=== PATIENT | male | born 1950 | race Two or more races ===

== ENCOUNTER 2022-12-18 06:43 | Day surgery (SDC) | payer OTHER ==
[~2022-12-18] VITALS: Ht 172.7 cm; Wt 92.5 kg
[~2022-12-18 06:43] MED LIST: ACET-1080 PO; ASPI-543 PO; CHOL50007 PO; CYAN500T39 PO; DULA1INJ SC; FENO160T PO; FOLI-119 PO; FURO40TA4 PO; GABA-339 PO; HYDR-4902 PO; INSLANTI SC; INSU100I45 IJ; METO-159 PO; RANO500G PO; SIMV40TA18 PO
[2022-12-18] MEDS ORDERED: IODIXANOL 320MG/ML 100ML BTL IV ONE (07:47)
[2022-12-18] MEDS ORDERED: IOHEXOL 350 MG/ML 100ML IJ ONE (07:47)
[2022-12-18] MEDS ORDERED: LIDOCAINE 2%HCL (LOCAL ANESTH.) INJ 20ML MDV ONE ×2 (07:47→08:21)
[2022-12-18] MEDS ORDERED: ANGIOMAX 250 MG VIAL IV ONE (08:20)
[2022-12-18] MEDS ORDERED: HEPARIN SODIUM (PORCINE) 5000 UNITS/ML 1ML VIAL ONE (08:20)
[2022-12-18] MEDS ORDERED: VERAPAMIL 2.5MG/ML INJ 2ML VIAL IV ONE (08:20)
[2022-12-18] MEDS ORDERED: fentaNYL CITRATE 100 MCG/2 ML VL ONE (08:20)
[2022-12-18] MEDS ORDERED: MIDAZOLAM HCL 2MG/2ML 2ml VIAL (1mg/ml) ONE (08:20)
[2022-12-18] MEDS ORDERED: SODIUM CHL 0.9% 0 ML ONE (08:21)
== END 2022-12-18 11:15 | disposition home or self-care (01) ==
LOC: CATH 06:43
PROVIDERS: ATTEND Internal Medicine
DX: R94.39 Abnormal result of other cardiovascular function study (principal); I25.118 Atherosclerotic heart disease of native coronary artery with other forms of angina pectoris; Z95.1 Presence of aortocoronary bypass graft; I10 Essential (primary) hypertension; E78.5 Hyperlipidemia, unspecified; Z79.899 Other long term (current) drug therapy; Z98.890 Other specified postprocedural states
CPT/HCPCS: 93005; 93459; C1769; C1894; J1644; J2250; J3010; Q9967; 99152

== ENCOUNTER 2023-08-13 12:02 | Inpatient (IN) | payer OTHER ==
[~2023-08-13] VITALS: Ht 165.1 cm; Wt 94.5 kg
[2023-08-13 14:30] LABS: Basophils # (auto) 0.1 10 ^3/uL (0-0.2); Basophils % (auto) 0.7 % (0.0-2.0); Eosinophils # (auto) 0.3 10 ^3/uL (0-0.8); Eosinophils % (auto) 2.8 % (0.0-7.0); Hemoglobin 9.6 g/dL (13.5-17.5)
[2023-08-13 14:32] LABS: Hematocrit 31.5 % (41.0-53.0); Lymphocytes # (auto) 2.9 10 ^3/uL (0.4-5.4); Lymphocytes % (auto) 27.3 % (10.0-50.0); Mean Corpuscular Hemoglobin 19.8 pg (28.0-32.0); Mean Corpuscular Hgb Conc. 30.5 g/dL (32.0-36.0); Mean Corpuscular Volume 64.9 fL (80.0-100.0); Monocytes # (auto) 1.3 10 ^3/uL (0-1.3); Neutrophils % (auto) 57.2 % (37.0-80.0); Nucleated Red Blood Cells % 0.1 %; Red Blood Cells 4.85 10^6/uL (4.5-5.90); Red Cell Distribution Width 19.4 % (11.8-14.3); White Blood Cell 10.5 10^3/uL (4.4-10.8)
[2023-08-13 14:43] LABS: Alanine Aminotransferase 24 U/L (7-40); Alkaline Phosphatase 90 U/L (46-116); Anion Gap 9 (5-15); BUN/Creatinine Ratio 14.5 (10.0-20.0); Blood Urea Nitrogen 27 mg/dL (9-23); Calcium 9.9 mg/dL (8.5-10.1); Carbon Dioxide 24 mmol/L (20-30); Chloride 113 mmol/L (98-107); Potassium 3.3 mmol/L (3.5-5.1); Sodium 146 mmol/L (136-145)
[2023-08-13 14:44] LABS: Aspartate Aminotransferase 41 U/L (13-40); Total Protein 6.9 g/dL (5.7-8.2)
[2023-08-13 14:52] LABS: Glucose 32 mg/dL (74-106)
[2023-08-13 14:53] LABS: INR 1.24 (0.9-1.15); Partial Thromboplastin Time 27.1 SEC (24.5-34.5); Prothrombin Time 12.9 sec (9.3-11.8)
[2023-08-13] MEDS: DEXTROSE (50%) 50ML SYRG IV ONE (14:58)
[2023-08-13] MEDS: DEXTROSE 50% SYRINGE 50 ML IV ONE (15:01)
[2023-08-13] MEDS: D5W/SOD CHLO 0.9% 1,000 ML IV ONE (15:28)
[2023-08-13 15:56] LABS: Anisocytosis Slight; Platelet Estimate Adequate
[2023-08-13 15:57] LABS: Hypochromia Marked; Ovalocytes MODERATE; Target Cell MODERATE; Tear Drop Cells FEW
[2023-08-13 17:30] VITALS: PULSE 56; RESP 14; O2SAT 96
[2023-08-13] MEDS: ONDANSETRON HCL 4 MG/2 ML VIAL IV ONE (18:12)
[2023-08-13] MEDS: HYDROmorphone HCL 2 MG/ML VL/or syr IV ONE (18:12)
[2023-08-13 19:30] VITALS: PULSE 72; RESP 16; O2SAT 100
[2023-08-13 19:55] LABS: Urine Bacteria None Seen /hpf (None Seen); Urine WBC None Seen /hpf (0 - 3)
[2023-08-13 20:14] LABS: Urine Blood Negative /uL (Negative); Urine Clarity Clear (Clear); Urine Color Light-Yellow (Yellow); Urine Protein, UAD TRACE (Negative); Urine Specific Gravity 1.013 (1.001-1.035); Urine Urobilinogen Normal (Negative); Urine pH 6.5 (5.0-9.0)
[2023-08-13] MEDS: D5W/SOD CHL 0.45% 1,000 ML IV SCH (23:17)
[2023-08-14] VITALS (8 sets, daily range): BP systolic 103–148; BP diastolic 54–78; PULSE 77–95; RESP 16–20; TEMP 97.8–98.2; O2SAT 91–100
[2023-08-14] MEDS ORDERED: hydrALAZINE HCL 20 MG/ML VL IV PRN (01:30)
[2023-08-14] MEDS: HYDROcodone-ACET 5/325MG TAB PO PRN ×2 (06:08→23:13)
[2023-08-14 06:55] LABS: Basophils # (auto) 0.1 10 ^3/uL (0-0.2); Lymphocytes # (auto) 1.3 10 ^3/uL (0.4-5.4); Monocytes # (auto) 0.9 10 ^3/uL (0-1.3); White Blood Cell 7.4 10^3/uL (4.4-10.8)
[2023-08-14 06:58] LABS: Eosinophils # (auto) 0.1 10 ^3/uL (0-0.8); Hematocrit 30.9 % (41.0-53.0); Hemoglobin 9.7 g/dL (13.5-17.5); Lymphocytes % (auto) 17.1 % (10.0-50.0); Mean Corpuscular Hemoglobin 20.6 pg (28.0-32.0); Mean Corpuscular Hgb Conc. 31.3 g/dL (32.0-36.0); Mean Corpuscular Volume 65.7 fL (80.0-100.0); Monocytes % (auto) 12.3 % (0.0-12.0); Neutrophils % (auto) 67.6 % (37.0-80.0); Nucleated Red Blood Cells % 0.2 %; Red Cell Distribution Width 20.3 % (11.8-14.3)
[2023-08-14 07:16] LABS: Chloride 112 mmol/L (98-107); Potassium 3.7 mmol/L (3.5-5.1); Sodium 144 mmol/L (136-145)
[2023-08-14 07:17] LABS: Anion Gap 9 (5-15); Carbon Dioxide 23 mmol/L (20-30)
[2023-08-14 07:18] LABS: Calcium 9.2 mg/dL (8.7-10.4)
[2023-08-14 07:22] LABS: Blood Urea Nitrogen 18 mg/dL (9-23)
[2023-08-14 07:25] LABS: Glucose 133 mg/dL (74-106)
[2023-08-14] MEDS: PANTOPRAZOLE 40 MG/10 ML VIAL INJ IV SCH (11:04)
[2023-08-14 18:45] LABS: Folate (Folic Acid) 38.88 ng/mL (>5.38)
[2023-08-14] MEDS: MORPHINE SULFATE INJ 2 MG/ml SYRG IV PRN (20:48)
[2023-08-14] MEDS: MELATONIN 5 MG TAB PO PRN (21:59)
[2023-08-15] VITALS (7 sets, daily range): BP systolic 106–146; BP diastolic 47–64; PULSE 89–116; RESP 14–22; TEMP 98–98.9; O2SAT 91–100
[2023-08-15] MEDS: ENOXAPARIN SOD 40 MG/0.4 ML SYRINGE SC SCH (10:23)
[2023-08-15 11:21] LABS: Hemoglobin 9.6 g/dL (13.5-17.5)
[2023-08-15 11:22] LABS: Hematocrit 31.7 % (41.0-53.0); Mean Corpuscular Hemoglobin 19.8 pg (28.0-32.0); Mean Corpuscular Hgb Conc. 30.1 g/dL (32.0-36.0); Mean Corpuscular Volume 65.9 fL (80.0-100.0); Red Blood Cells 4.82 10^6/uL (4.5-5.90); Red Cell Distribution Width 19.4 % (11.8-14.3); White Blood Cell 24.2 10^3/uL (4.4-10.8)
[2023-08-15 11:27] LABS: Chloride 107 mmol/L (98-107); Potassium 3.8 mmol/L (3.5-5.1); Sodium 139 mmol/L (136-145)
[2023-08-15 11:28] LABS: Anion Gap 12 (5-15); Carbon Dioxide 20 mmol/L (20-30)
[2023-08-15 11:29] LABS: Calcium 9.8 mg/dL (8.5-10.1)
[2023-08-15 11:34] LABS: Basophils % (manual) 0 (0.0-2.0); Blast Cells 0; Blood Urea Nitrogen 18 mg/dL (9-23); Eosinophils % (manual) 0 (0-7); Glucose 230 mg/dL (74-106); Metamyelocytes % 0; Myelocytes % 0; Promyelocytes % 0; Reactive Lymphocytes 0
[2023-08-15 11:36] LABS: % Iron Saturation 3.7 % (20-55)
[2023-08-15 12:07] LABS: Band Neutrophils % (manual) 17; Lymphocytes % (manual) 5 (10.0-50.0); Monocytes % (manual) 6 (0-12)
[2023-08-15 12:08] LABS: Hypochromia Marked; Ovalocytes MANY; Platelet Estimate Adequate; Target Cell FEW; Tear Drop Cells MODERATE
[2023-08-15] MEDS: IRON SUCROSE COMPLEX 100 ML IV SCH (16:19)
[2023-08-15] MEDS: diazePAM 5 MG TAB PO ONE (18:50)
[2023-08-16] VITALS (8 sets, daily range): BP systolic 130–145; BP diastolic 59–98; PULSE 70–140; RESP 18–24; TEMP 97.9–101.2; O2SAT 91–100
[2023-08-16 07:17] LABS: Chloride 106 mmol/L (98-107); Potassium 3.6 mmol/L (3.5-5.1); Sodium 138 mmol/L (136-145)
[2023-08-16 07:18] LABS: Anion Gap 12 (5-15); Carbon Dioxide 20 mmol/L (20-30)
[2023-08-16 07:20] LABS: Basophils # (auto) 0 10 ^3/uL (0-0.2); Basophils % (auto) 0.1 % (0.0-2.0); Eosinophils # (auto) 0 10 ^3/uL (0-0.8); Hematocrit 34.2 % (41.0-53.0); Hemoglobin 10.2 g/dL (13.5-17.5); Mean Corpuscular Hemoglobin 20.2 pg (28.0-32.0); Mean Corpuscular Hgb Conc. 29.8 g/dL (32.0-36.0); Monocytes # (auto) 1.3 10 ^3/uL (0-1.3)
[2023-08-16 07:22] LABS: Lymphocytes # (auto) 0.6 10 ^3/uL (0.4-5.4); Mean Corpuscular Volume 67.7 fL (80.0-100.0); Monocytes % (auto) 6.5 % (0.0-12.0); Neutrophils % (auto) 90.4 % (37.0-80.0); Nucleated Red Blood Cells % 0.2 %; Red Blood Cells 5.05 10^6/uL (4.5-5.90); Red Cell Distribution Width 19.9 % (11.8-14.3); White Blood Cell 19.9 10^3/uL (4.4-10.8)
[2023-08-16 07:23] LABS: BUN/Creatinine Ratio 14.1 (10.0-20.0); Blood Urea Nitrogen 23 mg/dL (9-23); Glucose 254 mg/dL (74-106)
[2023-08-16] MEDS: MORPHINE SULFATE 4 MG/ML SYR/VIAL IV PRN ×2 (10:38→19:44)
[2023-08-16] MEDS: ACETAMINOPHEN 325 MG TAB PO PRN (12:01)
[2023-08-16] MEDS: METHOCARBAMOL 500 MG TAB PO SCH (18:11)
[2023-08-16] MEDS: ONDANSETRON HCL 4 MG/2 ML VIAL IV PRN (21:54)
[2023-08-17] VITALS (8 sets, daily range): BP systolic 104–150; BP diastolic 48–75; PULSE 101–144; RESP 18–23; TEMP 97–99.6; O2SAT 90–98
[2023-08-17] MEDS: METOPROLOL TARTRATE 25 MG TAB PO SCH (10:06)
[2023-08-17] MEDS ORDERED: VANCOMYCIN PER PHARMACY 0 MG IV SCH (11:00)
[2023-08-17 13:20] LABS: Lactic Acid w/Reflex 3.1 mmol/L (0.4-2.0)
[2023-08-17] MEDS ORDERED: PIPERACILLIN-TAZOB 3.375GM 100 ML IV SCH (14:00)
[2023-08-17] MEDS: PIPERACILLIN-TAZOB 3.375GM 100 ML IV ONE (14:02)
[2023-08-17 15:04] LABS: Base Excess -6.1 mmol/L (-2.0-2.0)
[2023-08-17] MEDS: VANCOMYCIN 1GM/200ML 200 ML IV ONE (17:08)
[2023-08-17] MEDS: PIPERACILLIN-TAZOB 3.375GM 100 ML IV SCH (22:00)
[2023-08-18] VITALS (64 sets, daily range): BP systolic 62–128; BP diastolic 28–69; PULSE 73–139; RESP 14–42; TEMP 98–99.7; O2SAT 92–100
[2023-08-18 07:06] LABS: RPR Non Reactive (Non Reactive)
[2023-08-18] MEDS ORDERED: DEXTROSE (50%) 50ML SYRG IV PRN (08:30)
[2023-08-18] MEDS: ACCU-CHEK COMFORT CURVE STRIP VI SCH (08:31)
[2023-08-18] MEDS: FUROSEMIDE 40 MG/4 ML VIAL IV ONE (08:55)
[2023-08-18] MEDS: InsuLIN REG 1unit/0.01ml Soln (100units/ml) SC SCH (09:00)
[2023-08-18 09:48] LABS: Urine Bacteria None Seen /hpf (None Seen)
[2023-08-18 10:06] LABS: Urine Blood 1+ /uL (Negative); Urine Clarity Turbid (Clear); Urine Color Light-Orange (Yellow); Urine Protein, UAD 1+ (Negative); Urine Specific Gravity 1.019 (1.001-1.035); Urine Urobilinogen Normal (Negative); Urine WBC 57 /hpf (0 - 3); Urine WBC Clumps PRESENT /hpf (None Seen); Urine pH 7.5 (5.0-9.0)
[2023-08-18] MEDS: AMIODARONE BOLUS KIT 100 ML IV ONE (10:26)
[2023-08-18 10:31] LABS: Base Excess -9.6 mmol/L (-2.0-2.0)
[2023-08-18 10:32] LABS: Alanine Aminotransferase 25 U/L (7-40); Albumin 3.5 g/dL (3.2-4.8); Alkaline Phosphatase 71 U/L (46-116); Anion Gap 13 (5-15); Aspartate Aminotransferase 72 U/L (13-40); Bilirubin, Total 1.4 mg/dL (0.2-1.0); Calcium 9.7 mg/dL (8.5-10.1); Carbon Dioxide 18 mmol/L (20-30); Chloride 106 mmol/L (98-107); Potassium 4.3 mmol/L (3.5-5.1); Sodium 137 mmol/L (136-145); Total Protein 6.6 g/dL (5.7-8.2)
[2023-08-18 10:43] LABS: Hematocrit 29.8 % (41.0-53.0); Hemoglobin 9.3 g/dL (13.5-17.5); Mean Corpuscular Hemoglobin 20.3 pg (28.0-32.0); Mean Corpuscular Hgb Conc. 31.1 g/dL (32.0-36.0); Mean Corpuscular Volume 65.2 fL (80.0-100.0); Red Blood Cells 4.56 10^6/uL (4.5-5.90); Red Cell Distribution Width 19.6 % (11.8-14.3)
[2023-08-18 11:00] LABS: Blood Urea Nitrogen 65 mg/dL (9-23); Glucose 525 mg/dL (74-106)
[2023-08-18 11:07] LABS: Basophils % (manual) 0 (0.0-2.0); Blast Cells 0; Myelocytes % 0; Promyelocytes % 0; Reactive Lymphocytes 0
[2023-08-18] MEDS: NOREPINEPHRINE BITARTRATE 32 MG in SODIUM CHL 0.9% 218 ML IV SCH (11:17)
[2023-08-18] MEDS: MIDAZOLAM DRIP 50 mg/50mL 50 ML IV ONE (11:23)
[2023-08-18 12:15] LABS: Band Neutrophils % (manual) 40; Eosinophils % (manual) 1 (0-7); Lymphocytes % (manual) 11 (10.0-50.0); Metamyelocytes % 2; Monocytes % (manual) 8 (0-12)
[2023-08-18 12:16] LABS: Platelet Estimate Adequate
[2023-08-18 12:17] LABS: Giant Platelets Few; Hypochromia Marked; Ovalocytes MANY
[2023-08-18] MEDS: ETOMIDATE (2MG/ML) 20ML VIAL IV ONE ×2 (12:40→15:11)
[2023-08-18] MEDS: ROCURONIUM 10MG/ML 10ML VIAL IV ONE ×2 (12:40→15:11)
[2023-08-18] MEDS: SODIUM BICARB 50mEq/50ml Vial 50 ML in SOD CHL 0.45% 1,000 ML IV SCH (14:08)
[2023-08-18 14:13] LABS: Protein, Urine 122.5 mg/dL (0.0-11.9)
[2023-08-18] MEDS: ENOXAPARIN SOD 30 MG/0.3 ML SYRINGE SC SCH (14:13)
[2023-08-18] MEDS: fentaNYL Drip 2500mCg/250mlNS 250 ML IV ONE (14:14)
[2023-08-18] MEDS: SODIUM CHLORIDE 0.9% 1,000 ML IV ONE (14:15)
[2023-08-18] MEDS: MIDAZOLAM DRIP 50 mg/50mL 50 ML IV SCH (14:15)
[2023-08-18] MEDS: fentaNYL Drip 2500mCg/250mlNS 250 ML IV SCH (14:15)
[2023-08-18 14:16] LABS: Creatinine, Urine 70.92 mg/dL (30.0-125.0); Urine Protein/Creatinine Ratio 1.73
[2023-08-18 14:25] LABS: Base Excess -9.5 mmol/L (-2.0-2.0)
[2023-08-18] MEDS: VANCOMYCIN 500 MG in D5W 5% 100 ML IV ONE ×2 (14:54→14:58)
[2023-08-18] MEDS: AMIODARONE 450mg/250ml AE 250 ML IV SCH ×2 (14:57→19:11)
[2023-08-18] MEDS: AMIODARONE 450mg/250ml AE 250 ML IV ONE (14:58)
[2023-08-18] MEDS: FUROSEMIDE 40 MG/4 ML VIAL ONE (15:11)
[2023-08-18] MEDS ORDERED: PIPERACILLIN-TAZOB 3.375GM 100 ML IV SCH (17:00)
[2023-08-18] MEDS: CEFEPIME 1GM/ 50ML 50 ML IV SCH (22:02)
[2023-08-19] VITALS (109 sets, daily range): BP systolic 85–133; BP diastolic 23–67; PULSE 75–144; RESP 14–30; TEMP 98.6–100.4; O2SAT 100
[2023-08-19 01:12] LABS: Base Excess -8.3 mmol/L (-2.0-2.0)
[2023-08-19 03:54] LABS: Eosinophils # (auto) 0.1 10 ^3/uL (0-0.8); Hemoglobin 9.3 g/dL (13.5-17.5); Monocytes # (auto) 1.1 10 ^3/uL (0-1.3); Monocytes % (auto) 7.2 % (0.0-12.0)
[2023-08-19 03:56] LABS: Basophils # (auto) 0 10 ^3/uL (0-0.2); Basophils % (auto) 0.2 % (0.0-2.0); Eosinophils % (auto) 0.5 % (0.0-7.0); Hematocrit 29.9 % (41.0-53.0); Lymphocytes # (auto) 2.2 10 ^3/uL (0.4-5.4); Lymphocytes % (auto) 14.3 % (10.0-50.0); Mean Corpuscular Hemoglobin 20.1 pg (28.0-32.0); Mean Corpuscular Hgb Conc. 31.3 g/dL (32.0-36.0); Mean Corpuscular Volume 64.4 fL (80.0-100.0); Neutrophils # (auto) 11.8 10 ^3/uL (1.6-8.6); Neutrophils % (auto) 77.8 % (37.0-80.0); Nucleated Red Blood Cells % 1.2 %; Red Blood Cells 4.64 10^6/uL (4.5-5.90); Red Cell Distribution Width 19.7 % (11.8-14.3); White Blood Cell 15.1 10^3/uL (4.4-10.8)
[2023-08-19 04:13] LABS: Alanine Aminotransferase 28 U/L (7-40); Alkaline Phosphatase 80 U/L (46-116); Anion Gap 14 (5-15); Aspartate Aminotransferase 87 U/L (13-40); BUN/Creatinine Ratio 21.5 (10.0-20.0); Bilirubin, Total 1.5 mg/dL (0.2-1.0); Calcium 9.5 mg/dL (8.7-10.4); Carbon Dioxide 18 mmol/L (20-30); Chloride 105 mmol/L (98-107); Potassium 3.6 mmol/L (3.5-5.1); Sodium 137 mmol/L (136-145); Total Protein 6.2 g/dL (5.7-8.2)
[2023-08-19 04:27] LABS: Glucose 376 mg/dL (74-106)
[2023-08-19 04:28] LABS: Blood Urea Nitrogen 83 mg/dL (9-23)
[2023-08-19] MEDS ORDERED: AMIODARONE 450mg/250ml AE 250 ML IV SCH (07:00)
[2023-08-19 07:03] LABS: Base Excess -7.2 mmol/L (-2.0-2.0)
[2023-08-19] MEDS: SODIUM BICARB 50mEq/50ml Vial 50 ML in SOD CHL 0.45% 1,000 ML IV SCH (10:27)
[2023-08-19] MEDS: CEFEPIME 1GM/ 50ML 50 ML IV SCH (10:29)
[2023-08-19] MEDS: ALBUMIN 25% 100 ML IV ONE (11:55)
[2023-08-19] MEDS: BUMETANIDE 2.5mg/10ml (0.25 mg/ml) INJ IV ONE (12:45)
[2023-08-19] MEDS: BUMETANIDE INJECTION 12.5 MG in GIVE UN-DILUTED 0 ML IV SCH (12:56)
[2023-08-19] MEDS: PROPOFOL 100 ML IV SCH (15:09)
[2023-08-19] MEDS: SODIUM FERR GLUC 62.5MG/5ML 125 MG in SODIUM CHL 0.9% 100 ML IV SCH (17:04)
[2023-08-20] VITALS (104 sets, daily range): BP systolic 69–137; BP diastolic 24–77; PULSE 77–136; RESP 13–31; TEMP 97–99.5; O2SAT 98–100
[2023-08-20 04:25] LABS: Hemoglobin 8.7 g/dL (13.5-17.5); Mean Corpuscular Hemoglobin 20.3 pg (28.0-32.0); Mean Corpuscular Hgb Conc. 32.1 g/dL (32.0-36.0); Mean Corpuscular Volume 63.3 fL (80.0-100.0); Red Blood Cells 4.26 10^6/uL (4.5-5.90); Red Cell Distribution Width 19.4 % (11.8-14.3); White Blood Cell 20.8 10^3/uL (4.4-10.8)
[2023-08-20 04:38] LABS: Alanine Aminotransferase 30 U/L (7-40); Alkaline Phosphatase 113 U/L (46-116); Anion Gap 13 (5-15); Aspartate Aminotransferase 85 U/L (13-40); BUN/Creatinine Ratio 24.6 (10.0-20.0); Bilirubin, Total 2.3 mg/dL (0.2-1.0); Calcium 9.3 mg/dL (8.7-10.4); Carbon Dioxide 19 mmol/L (20-30); Chloride 104 mmol/L (98-107); Glucose 321 mg/dL (74-106); Potassium 3.4 mmol/L (3.5-5.1); Sodium 136 mmol/L (136-145)
[2023-08-20 04:44] LABS: Basophils % (manual) 0 (0.0-2.0); Blast Cells 0; Eosinophils % (manual) 0 (0-7); Metamyelocytes % 0; Promyelocytes % 0; Reactive Lymphocytes 0
[2023-08-20 04:45] LABS: Blood Urea Nitrogen 90 mg/dL (9-23)
[2023-08-20 05:37] LABS: Band Neutrophils % (manual) 11; Hypochromia Marked; Lymphocytes % (manual) 13 (10.0-50.0); Monocytes % (manual) 6 (0-12); Myelocytes % 1
[2023-08-20 05:38] LABS: Giant Platelets Few; Large Platelets FEW; Ovalocytes MODERATE; Platelet Estimate Adequate; Target Cell FEW
[2023-08-20] MEDS: NOREPINEPHRINE BITARTRATE 32 MG in SODIUM CHL 0.9% 218 ML IV SCH (07:00)
[2023-08-20 07:31] LABS: Base Excess -6.8 mmol/L (-2.0-2.0)
[2023-08-20] MEDS ORDERED: HEPARIN DRIP/D5W 100UNITS/ML 250 ML IV SCH (08:00)
[2023-08-20] MEDS: HEPARIN SODIUM (PORCINE) 5000 UNITS/ML 1ML VIAL IV ONE (08:24)
[2023-08-20 09:06] LABS: Hemoglobin 8.6 g/dL (13.5-17.5); Mean Corpuscular Hemoglobin 20.1 pg (28.0-32.0); Mean Corpuscular Hgb Conc. 31.7 g/dL (32.0-36.0); Mean Corpuscular Volume 63.4 fL (80.0-100.0); Red Blood Cells 4.26 10^6/uL (4.5-5.90); Red Cell Distribution Width 19.3 % (11.8-14.3); White Blood Cell 22.2 10^3/uL (4.4-10.8)
[2023-08-20 09:07] LABS: INR 1.76 (0.9-1.15); Partial Thromboplastin Time 37.1 SEC (24.5-34.5); Prothrombin Time 17.9 sec (9.3-11.8)
[2023-08-20 09:08] LABS: Basophils % (manual) 0 (0.0-2.0); Blast Cells 0; Eosinophils % (manual) 0 (0-7); Metamyelocytes % 0; Promyelocytes % 0; Reactive Lymphocytes 0
[2023-08-20 09:35] LABS: Band Neutrophils % (manual) 11; Lymphocytes % (manual) 16 (10.0-50.0); Monocytes % (manual) 3 (0-12); Myelocytes % 2
[2023-08-20 09:36] LABS: Hypochromia Moderate; Platelet Estimate Adequate; Target Cell FEW
[2023-08-20] MEDS: PHENYLEPHRINE INJ 80 MG in SODIUM CHL 0.9% 242 ML IV SCH (10:13)
[2023-08-20] MEDS: VANCOMYCIN 500 MG in D5W 5% 100 ML IV ONE (10:33)
[2023-08-20] MEDS: LIDOCAINE 2%HCL (LOCAL ANESTH.) INJ 20ML MDV ONE (10:50)
[2023-08-20] MEDS: ANGIOMAX 250 MG VIAL IV ONE (11:05)
[2023-08-20] MEDS: SODIUM CHL 0.9% 50 ML ONE (11:06)
[2023-08-20] MEDS: IODIXANOL 320MG/ML 100ML BTL IV ONE (11:16)
[2023-08-20] MEDS: EPINEPHrine HCL 1 MG/10 ML SYRG ONE (11:53)
[2023-08-20] MEDS: TICAGRELOR 90 MG TAB ONE (11:54)
[2023-08-20] MEDS: ATROPINE SULF 1 MG/10ml SYR ONE (11:54)
[2023-08-20] MEDS: VERAPAMIL 2.5MG/ML INJ 2ML VIAL IV ONE (11:54)
[2023-08-20] MEDS: POTASSIUM CHL 20MEQ/100ML 100 ML IV ONE (16:45)
[2023-08-20 17:05] LABS: Hematocrit 25.3 % (41.0-53.0)
[2023-08-20] MEDS: ALBUTEROL SULF 2.5 MG/0.5ML(0.5%) NEB SOLN NEB PRN (19:01)
[2023-08-20] MEDS: PANTOPRAZOLE 40mg/50ML NS AE 50 ML IV SCH (20:10)
[2023-08-20] MEDS: TICAGRELOR 90 MG TAB GT SCH (21:33)
[2023-08-20] MEDS: ATORVASTATIN 20 MG TAB PO SCH (21:33)
[2023-08-20] MEDS: ceFAZolin 2 GM/D5W50ml 50 ML IV SCH (21:33)
[2023-08-21] VITALS (105 sets, daily range): BP systolic 82–125; BP diastolic 40–77; PULSE 79–109; RESP 17–27; TEMP 97.2–98.8; O2SAT 92–100
[2023-08-21 00:28] LABS: Hemoglobin 8.6 g/dL (13.5-17.5)
[2023-08-21 00:30] LABS: Hematocrit 27.6 % (41.0-53.0)
[2023-08-21 04:20] LABS: Chloride 104 mmol/L (98-107); Potassium 4.2 mmol/L (3.5-5.1); Sodium 134 mmol/L (136-145)
[2023-08-21 04:21] LABS: Anion Gap 14 (5-15); Calcium 9.1 mg/dL (8.7-10.4); Carbon Dioxide 16 mmol/L (20-30)
[2023-08-21 04:27] LABS: BUN/Creatinine Ratio 21.5 (10.0-20.0); Glucose 308 mg/dL (74-106)
[2023-08-21 04:33] LABS: Blood Urea Nitrogen 78 mg/dL (9-23)
[2023-08-21] MEDS: SODIUM BICARB 8.4% 50Meq/50ml SYR Vial IV ONE (04:56)
[2023-08-21 05:42] LABS: Hematocrit 26.3 % (41.0-53.0); Hemoglobin 8.3 g/dL (13.5-17.5); Mean Corpuscular Hgb Conc. 31.4 g/dL (32.0-36.0); Mean Corpuscular Volume 63.8 fL (80.0-100.0); Red Blood Cells 4.12 10^6/uL (4.5-5.90); White Blood Cell 28.2 10^3/uL (4.4-10.8)
[2023-08-21 05:43] LABS: Band Neutrophils % (manual) 0; Basophils % (manual) 0 (0.0-2.0); Blast Cells 0; Metamyelocytes % 0; Promyelocytes % 0; Reactive Lymphocytes 0
[2023-08-21 07:18] LABS: Base Excess -6.1 mmol/L (-2.0-2.0)
[2023-08-21 08:23] LABS: Eosinophils % (manual) 3 (0-7); Lymphocytes % (manual) 19 (10.0-50.0); Monocytes % (manual) 7 (0-12); Myelocytes % 3; Platelet Estimate Adequate
[2023-08-21 09:55] LABS: Hemoglobin 8.5 g/dL (13.5-17.5)
[2023-08-21] MEDS ORDERED: ASPirin-EC 81 mg tab PO SCH (10:00)
[2023-08-21] MEDS: ASPirin 81 mg TAB PO SCH (11:17)
[2023-08-21] MEDS: SODIUM BICARB 50mEq/50ml Vial 150 ML in D5W 5% 1,000 ML IV ONE (13:44)
[2023-08-21] MEDS ORDERED: IRON SUCROSE COMPLEX 100 ML IV SCH (14:15)
[2023-08-21] MEDS: PIPERACILLIN-TAZOB 3.375GM 100 ML IV ONE (14:16)
[2023-08-21] MEDS ORDERED: SODIUM FERR GLUC 62.5MG/5ML 125 MG in SODIUM CHL 0.9% 100 ML IV SCH (14:34)
[2023-08-21 16:15] LABS: Lactic Acid w/Reflex 2.4 mmol/L (0.4-2.0)
[2023-08-21] MEDS: BUMETANIDE 2.5mg/10ml (0.25 mg/ml) INJ IV ONE (17:36)
[2023-08-21] MEDS: metOLazone 5 MG TAB PO ONE (17:37)
[2023-08-21] MEDS: InsuLIN REG 1unit/0.01ml Soln (100units/ml) SC SCH (17:44)
[2023-08-21] MEDS: Nepro With Carb Steady 1 Liter Bottle GT SCH (18:07)
[2023-08-21] MEDS: ACCU-CHEK COMFORT CURVE STRIP VI SCH (18:09)
[2023-08-21] MEDS: INSULIN NPH Isophane (HUMAN) 1unit/0.01ml Susp(100units/ml) SC SCH (18:39)
[2023-08-21] MEDS: BUMETANIDE INJECTION 12.5 MG in GIVE UN-DILUTED 0 ML IV SCH (18:42)
[2023-08-21] MEDS: PANTOPRAZOLE 40 MG/10 ML VIAL INJ IV SCH (21:49)
[2023-08-21] MEDS: PIPERACILLIN-TAZOB 3.375GM 100 ML IV SCH (21:49)
[2023-08-22] VITALS (108 sets, daily range): BP systolic 71–134; BP diastolic 32–89; PULSE 79–120; RESP 15–40; TEMP 98.4–99.5; O2SAT 91–100
[2023-08-22 03:54] LABS: Hemoglobin 7.1 g/dL (13.5-17.5); Mean Corpuscular Hemoglobin 20.1 pg (28.0-32.0)
[2023-08-22 03:57] LABS: Hematocrit 22.6 % (41.0-53.0); Mean Corpuscular Hgb Conc. 31.4 g/dL (32.0-36.0); Mean Corpuscular Volume 64.1 fL (80.0-100.0); Red Blood Cells 3.53 10^6/uL (4.5-5.90); Red Cell Distribution Width 18.9 % (11.8-14.3)
[2023-08-22 04:10] LABS: Alanine Aminotransferase 21 U/L (7-40); Albumin 2.4 g/dL (3.2-4.8); Alkaline Phosphatase 159 U/L (46-116); Anion Gap 13 (5-15); Aspartate Aminotransferase 98 U/L (13-40); BUN/Creatinine Ratio 22.8 (10.0-20.0); Bilirubin, Total 2.9 mg/dL (0.2-1.0); Calcium 8.5 mg/dL (8.7-10.4); Carbon Dioxide 19 mmol/L (20-30); Chloride 101 mmol/L (98-107); Glucose 366 mg/dL (74-106); Potassium 3.5 mmol/L (3.5-5.1); Sodium 133 mmol/L (136-145); Total Protein 5.4 g/dL (5.7-8.2)
[2023-08-22 04:22] LABS: Blood Urea Nitrogen 86 mg/dL (9-23); White Blood Cell 33.4 10^3/uL (4.4-10.8)
[2023-08-22 04:23] LABS: Basophils % (manual) 0 (0.0-2.0); Blast Cells 0; Eosinophils % (manual) 0 (0-7); Myelocytes % 0; Promyelocytes % 0; Reactive Lymphocytes 0
[2023-08-22 05:47] LABS: Band Neutrophils % (manual) 4; Lymphocytes % (manual) 9 (10.0-50.0); Metamyelocytes % 5; Monocytes % (manual) 3 (0-12)
[2023-08-22 05:48] LABS: Anisocytosis Slight; Giant Platelets Few; Hypochromia Marked; Large Platelets FEW; Ovalocytes MODERATE; Platelet Estimate Adequate; Target Cell FEW
[2023-08-22 07:32] LABS: Base Excess -5.7 mmol/L (-2.0-2.0)
[2023-08-22] MEDS: IOHEXOL 300 MG/ML 100ML BOTTLE IJ ONE (10:49)
[2023-08-22 14:13] LABS: Hematocrit 26.4 % (41.0-53.0); Hemoglobin 8.5 g/dL (13.5-17.5)
[2023-08-22] MEDS: SODIUM CHL 0.9% 1000 ML BAG XX ONE (16:00)
[2023-08-22] MEDS: VASOPRESSIN 20 UNITS in SODIUM CHL 0.9% 99 ML IV SCH (16:38)
[2023-08-22] MEDS: ALBUMIN 25% 100 ML IV ONE (16:46)
[2023-08-22] MEDS: EPOETIN ALFA-EPBX 4,000 UNIT/ML VIAL SC ONE (22:11)
[2023-08-22 23:51] LABS: Potassium 3.4 mmol/L (3.5-5.1)
[2023-08-22 23:58] LABS: Magnesium 1.8 mg/dL (1.6-2.6)
[2023-08-23] VITALS (119 sets, daily range): BP systolic 95–169; BP diastolic 38–68; PULSE 76–124; RESP 16–33; TEMP 97.3–100; O2SAT 82–100
[2023-08-23] MEDS: POTASSIUM CHL 10 Meq TABLET PO ONE (00:49)
[2023-08-23 03:53] LABS: Anion Gap 11 (5-15); Calcium 8.5 mg/dL (8.7-10.4); Carbon Dioxide 22 mmol/L (20-30); Chloride 102 mmol/L (98-107); Potassium 3.3 mmol/L (3.5-5.1); Sodium 135 mmol/L (136-145)
[2023-08-23 03:56] LABS: Hemoglobin 7.9 g/dL (13.5-17.5)
[2023-08-23 03:58] LABS: Hematocrit 24.9 % (41.0-53.0); Mean Corpuscular Hemoglobin 21.2 pg (28.0-32.0); Mean Corpuscular Hgb Conc. 31.8 g/dL (32.0-36.0); Mean Corpuscular Volume 66.7 fL (80.0-100.0); Red Blood Cells 3.73 10^6/uL (4.5-5.90)
[2023-08-23 03:59] LABS: BUN/Creatinine Ratio 23.9 (10.0-20.0); Blood Urea Nitrogen 74 mg/dL (9-23); Glucose 278 mg/dL (74-106); Magnesium 1.8 mg/dL (1.6-2.6)
[2023-08-23 04:00] LABS: % Iron Saturation 33.2 % (20-55)
[2023-08-23 04:03] LABS: White Blood Cell 35.7 10^3/uL (4.4-10.8)
[2023-08-23 04:05] LABS: Basophils % (manual) 0 (0.0-2.0); Blast Cells 0; Promyelocytes % 0; Reactive Lymphocytes 0
[2023-08-23 04:39] LABS: Anisocytosis Slight; Band Neutrophils % (manual) 5; Eosinophils % (manual) 1 (0-7); Hypochromia Moderate; Lymphocytes % (manual) 6 (10.0-50.0); Metamyelocytes % 2; Monocytes % (manual) 4 (0-12); Myelocytes % 2
[2023-08-23 04:40] LABS: Giant Platelets Few; Large Platelets FEW; Ovalocytes MODERATE; Platelet Estimate Adequate
[2023-08-23 04:41] LABS: Target Cell MODERATE
[2023-08-23] MEDS: SODIUM CHL 0.9% 1000 ML BAG XX ONE (07:00)
[2023-08-23] MEDS ORDERED: ALBUMIN 25% 100 ML IV PRN (08:00)
[2023-08-23 08:26] LABS: Base Excess -3.5 mmol/L (-2.0-2.0)
[2023-08-23] MEDS: ALBUMIN 25% 100 ML, ALBUMIN 25% 100 ML IV PRN (10:00)
[2023-08-23] MEDS: EPINEPHrine HCL 250 ML IV SCH (10:15)
[2023-08-23] MEDS: MAGNESIUM SULFATE 1GM/100ML 100 ML IV SCH (15:00)
[2023-08-23] MEDS ORDERED: levoFLOXacin 500MG 100 ML IV ONE (16:30)
[2023-08-23] MEDS ORDERED: CLINIMIX PER PHARMACY 0 ML IV SCH (17:30)
[2023-08-23] MEDS ORDERED: DEXTROSE (50%) 50ML SYRG IV SCH (20:00)
[2023-08-23] MEDS: NAFCILLIN SOD 2GM 2 GM in SODIUM CHL 0.9% 100 ML IV SCH (20:29)
[2023-08-23] MEDS: DAKINS HALF STR 0.25% (NaHypochlorite) 473 ML TOPICAL SOL TOP SCH (22:00)
[2023-08-23] MEDS: CEFEPIME 1GM/ 50ML 50 ML IV SCH (22:48)
[2023-08-23] MEDS: AMINO ACID INFUSION IN D5W 1,000 ML IV SCH (22:53)
[2023-08-23] MEDS: ACCU-CHEK COMFORT CURVE STRIP VI SCH (23:43)
[2023-08-23] MEDS: InsuLIN REG 1unit/0.01ml Soln (100units/ml) SC SCH (23:43)
[2023-08-24] VITALS (64 sets, daily range): BP systolic 90–139; BP diastolic 36–54; PULSE 77–113; RESP 19–31; TEMP 98.4–100; O2SAT 91–99
[2023-08-24 04:24] LABS: Hematocrit 29.3 % (41.0-53.0); Hemoglobin 9.4 g/dL (13.5-17.5); Mean Corpuscular Hemoglobin 23.4 pg (28.0-32.0); Mean Corpuscular Hgb Conc. 32.2 g/dL (32.0-36.0); Mean Corpuscular Volume 72.5 fL (80.0-100.0); Red Blood Cells 4.03 10^6/uL (4.5-5.90); White Blood Cell 29.5 10^3/uL (4.4-10.8)
[2023-08-24 04:29] LABS: Red Cell Distribution Width 25.6 % (11.8-14.3)
[2023-08-24 04:31] LABS: Basophils % (manual) 0 (0.0-2.0); Blast Cells 0; Myelocytes % 0; Promyelocytes % 0; Reactive Lymphocytes 0
[2023-08-24 04:36] LABS: INR 1.69 (0.9-1.15); Partial Thromboplastin Time 29.7 SEC (24.5-34.5); Prothrombin Time 17.2 sec (9.3-11.8)
[2023-08-24 04:46] LABS: Albumin 3.1 g/dL (3.2-4.8); Alkaline Phosphatase 203 U/L (46-116); Anion Gap 14 (5-15); Aspartate Aminotransferase 97 U/L (13-40); BUN/Creatinine Ratio 15.9 (10.0-20.0); Bilirubin, Total 6.9 mg/dL (0.2-1.0); Calcium 8.7 mg/dL (8.7-10.4); Carbon Dioxide 21 mmol/L (20-30); Chloride 100 mmol/L (98-107); Glucose 302 mg/dL (74-106); Magnesium 2.3 mg/dL (1.6-2.6); Phosphorus 3.8 mg/dL (2.4-5.1); Potassium 3.5 mmol/L (3.5-5.1); Sodium 135 mmol/L (136-145); Total Protein 6.4 g/dL (5.7-8.2)
[2023-08-24 04:48] LABS: Alanine Aminotransferase 9 U/L (7-40); Blood Urea Nitrogen 36 mg/dL (9-23)
[2023-08-24 05:06] LABS: Band Neutrophils % (manual) 2; Eosinophils % (manual) 2 (0-7); Lymphocytes % (manual) 3 (10.0-50.0); Metamyelocytes % 1; Monocytes % (manual) 3 (0-12)
[2023-08-24 05:07] LABS: Platelet Estimate Adequate
[2023-08-24] MEDS ORDERED: ceFAZolin 1GM/50ML 50 ML IV SCH (10:00)
[2023-08-24 10:04] LABS: Base Excess -0.2 mmol/L (-2.0-2.0)
[2023-08-24] MEDS: MORPHINE SULFATE INJ 2 MG/ml SYRG IV PRN (14:31)
[2023-08-24] MEDS: LORazepam 2MG/ML-1ML VIAL IV PRN (14:32)
[2023-08-25] MEDS ORDERED: levoFLOXacin 250MG 50 ML IV SCH (16:30)
== END 2023-08-24 15:17 | DRG 853 ==
LOC: ER 12:02 → EDBD 12:02 → TELE 20:21 → TELE-CENTR 20:21 → ICU WEST 08-18 10:35
PROVIDERS: ADMIT Nurse Practitioner Family; ATTEND Nurse Practitioner Family
PROC: 5A1955Z Respiratory Ventilation, Greater than 96 Consecutive Hours (ICD-10-PCS; 2023-08-18)
PROC: 0BH17EZ Insertion of Endotracheal Airway into Trachea, Via Natural or Artificial Opening (ICD-10-PCS; 2023-08-18)
PROC: 02H633Z Insertion of Infusion Device into Right Atrium, Percutaneous Approach (ICD-10-PCS; 2023-08-18)
PROC: B548ZZA Ultrasonography of Superior Vena Cava, Guidance (ICD-10-PCS; 2023-08-18)
PROC: 05H933Z Insertion of Infusion Device into Right Brachial Vein, Percutaneous Approach (ICD-10-PCS; 2023-08-19)
PROC: B54MZZA Ultrasonography of Right Upper Extremity Veins, Guidance (ICD-10-PCS; 2023-08-19)
PROC: 027034Z Dilation of Coronary Artery, One Artery with Drug-eluting Intraluminal Device, Percutaneous Approach (ICD-10-PCS; principal; 2023-08-20)
PROC: 02C03ZZ Extirpation of Matter from Coronary Artery, One Artery, Percutaneous Approach (ICD-10-PCS; 2023-08-20)
PROC: 4A023N7 Measurement of Cardiac Sampling and Pressure, Left Heart, Percutaneous Approach (ICD-10-PCS; 2023-08-20)
PROC: B211YZZ Fluoroscopy of Multiple Coronary Arteries using Other Contrast (ICD-10-PCS; 2023-08-20)
PROC: B218YZZ Fluoroscopy of Left Internal Mammary Bypass Graft using Other Contrast (ICD-10-PCS; 2023-08-20)
PROC: B212YZZ Fluoroscopy of Single Coronary Artery Bypass Graft using Other Contrast (ICD-10-PCS; 2023-08-20)
PROC: 06HN33Z Insertion of Infusion Device into Left Femoral Vein, Percutaneous Approach (ICD-10-PCS; 2023-08-22)
PROC: B54CZZA Ultrasonography of Left Lower Extremity Veins, Guidance (ICD-10-PCS; 2023-08-22)
PROC: 03HY32Z Insertion of Monitoring Device into Upper Artery, Percutaneous Approach (ICD-10-PCS; 2023-08-22)
PROC: 30233N1 Transfusion of Nonautologous Red Blood Cells into Peripheral Vein, Percutaneous Approach (ICD-10-PCS; 2023-08-22)
PROC: 5A1D70Z Performance of Urinary Filtration, Intermittent, Less than 6 Hours Per Day (ICD-10-PCS; 2023-08-22)
PROC: 5A1D70Z Performance of Urinary Filtration, Intermittent, Less than 6 Hours Per Day (ICD-10-PCS; 2023-08-23)
DX: A41.9 Sepsis, unspecified organism (principal); G93.41 Metabolic encephalopathy; I21.4 Non-ST elevation (NSTEMI) myocardial infarction; J18.9 Pneumonia, unspecified organism; J96.01 Acute respiratory failure with hypoxia; R65.21 Severe sepsis with septic shock; N17.0 Acute kidney failure with tubular necrosis; S22.081A Stable burst fracture of T11-T12 vertebra, initial encounter for closed fracture; I13.0 Hypertensive heart and chronic kidney disease with heart failure and stage 1 through stage 4 chronic kidney disease, or unspecified chronic kidney disease; E86.0 Dehydration; E11.649 Type 2 diabetes mellitus with hypoglycemia without coma; S73.101A Unspecified sprain of right hip, initial encounter; E78.5 Hyperlipidemia, unspecified; D50.9 Iron deficiency anemia, unspecified; E11.22 Type 2 diabetes mellitus with diabetic chronic kidney disease; N18.9 Chronic kidney disease, unspecified; I25.10 Atherosclerotic heart disease of native coronary artery without angina pectoris; I48.91 Unspecified atrial fibrillation; M48.02 Spinal stenosis, cervical region; E87.6 Hypokalemia; E11.42 Type 2 diabetes mellitus with diabetic polyneuropathy; E11.65 Type 2 diabetes mellitus with hyperglycemia; I50.9 Heart failure, unspecified; Z79.4 Long term (current) use of insulin; Z79.84 Long term (current) use of oral hypoglycemic drugs; Z79.899 Other long term (current) drug therapy; Y93.89 Activity, other specified; Y92.89 Other specified places as the place of occurrence of the external cause; Y99.8 Other external cause status; V00.141A Fall from scooter (nonmotorized), initial encounter; Z95.5 Presence of coronary angioplasty implant and graft; Z87.891 Personal history of nicotine dependence
CPT/HCPCS: 36415; 36600; 70450; 71045; 71250; 72125; 72128; 72131; 72193; 73502; 73700; 74176; 76775; 80048; 80053; 80202; 81001; 82565; 82570; 82607; 82728; 82746; 82805; 82962; 83036; 83540; 83550; 83605; 83735; 83880; 84100; 84132; 84156; 84300; 84443; 84484; 85007; 85014; 85018; 85025; 85027; 85610; 85730; 86592; 86850; 86900; 86901; 86920; 87040; 87070; 87077; 87081; 87086; 87088; 87186; 87205; 87340; 90935; 92941; 92973; 93005; 93306; 93459; 94002; 94003; 94640; 97110; 97163; 97530; 99152; 99291; C9113; G0378; J1642; J1756; J1815; J2405; J2543; J2704; J3480; J7060; P9047; Q9967